=== PATIENT | female | born 1950 | race African-American/Black ===

== ENCOUNTER → 2016-08-19 | Outpatient (CLI) | payer OTHER, BC ==
[~2016-08-19] MED LIST: AMLODIPINE BESY10 MG PO; ASPIRIN325 PO; CALCIUM 600 +1 EAC1 PO; CENTRUM SILVER1 EAC4 PO; FOLIC ACID1 MG PO; GLUCOTROL5 MG PO; HYDROCHLOROTH12.5 M1 PO; LASIX 20 MG TAB20 MG PO; LISINOPRIL20 MG PO; LOVASTATIN 20 M20 MG PO; METFORMIN HCL500 MG PO; OMEGA-31000 M1 PO; PIOGLITAZONE15 MG PO; VITAMIN D3400 UNI2 PO
== END ==
LOC: RAD 01:27
DX: Z12.31 Encounter for screening mammogram for malignant neoplasm of breast (principal)

== ENCOUNTER → 2017-08-26 | Outpatient (CLI) | payer OTHER, BC | LOC: RAD 01:36 | DX: Z12.31 Encounter for screening mammogram for malignant neoplasm of breast (principal) ==

== ENCOUNTER → 2018-08-31 | Outpatient (CLI) | payer OTHER, BC | LOC: RAD 10:27 | DX: Z12.31 Encounter for screening mammogram for malignant neoplasm of breast (principal) ==

== ENCOUNTER → 2019-09-06 | Outpatient (CLI) | payer OTHER, BC | LOC: SJCVCIMAG 08:38 | PROVIDERS: ATTEND Internal Medicine | DX: I08.1 Rheumatic disorders of both mitral and tricuspid valves (principal); I11.9 Hypertensive heart disease without heart failure; R94.31 Abnormal electrocardiogram [ECG] [EKG]; R00.0 Tachycardia, unspecified; I25.10 Atherosclerotic heart disease of native coronary artery without angina pectoris; E78.5 Hyperlipidemia, unspecified; E11.9 Type 2 diabetes mellitus without complications; E66.9 Obesity, unspecified; Z79.899 Other long term (current) drug therapy ==

== ENCOUNTER → 2020-03-13 | Outpatient (CLI) | payer OTHER, BC | LOC: SJCVC 10:57 | PROVIDERS: ATTEND Internal Medicine | DX: R94.31 Abnormal electrocardiogram [ECG] [EKG] (principal); R00.0 Tachycardia, unspecified; I25.10 Atherosclerotic heart disease of native coronary artery without angina pectoris; I10 Essential (primary) hypertension; E78.5 Hyperlipidemia, unspecified; E11.9 Type 2 diabetes mellitus without complications; M19.90 Unspecified osteoarthritis, unspecified site; E66.9 Obesity, unspecified; Z88.2 Allergy status to sulfonamides; Z79.82 Long term (current) use of aspirin; Z79.84 Long term (current) use of oral hypoglycemic drugs; Z79.899 Other long term (current) drug therapy ==

== ENCOUNTER → 2020-10-03 | Outpatient (CLI) | payer OTHER, BC | LOC: SJCVC 10:36 | PROVIDERS: ATTEND Internal Medicine | DX: R94.31 Abnormal electrocardiogram [ECG] [EKG] (principal); I25.10 Atherosclerotic heart disease of native coronary artery without angina pectoris; I10 Essential (primary) hypertension; E78.5 Hyperlipidemia, unspecified; E11.9 Type 2 diabetes mellitus without complications; M19.90 Unspecified osteoarthritis, unspecified site; E66.9 Obesity, unspecified; Z95.5 Presence of coronary angioplasty implant and graft; Z90.710 Acquired absence of both cervix and uterus; Z88.2 Allergy status to sulfonamides; Z79.82 Long term (current) use of aspirin; Z79.84 Long term (current) use of oral hypoglycemic drugs; Z79.899 Other long term (current) drug therapy; Z82.49 Family history of ischemic heart disease and other diseases of the circulatory system ==

== ENCOUNTER → 2021-03-19 | Outpatient (CLI) | payer OTHER, BC | LOC: SJCVC 10:22 | PROVIDERS: ATTEND Internal Medicine | DX: R94.31 Abnormal electrocardiogram [ECG] [EKG] (principal); I25.10 Atherosclerotic heart disease of native coronary artery without angina pectoris; I10 Essential (primary) hypertension; E78.5 Hyperlipidemia, unspecified; E11.9 Type 2 diabetes mellitus without complications; E66.9 Obesity, unspecified; Z95.5 Presence of coronary angioplasty implant and graft; Z82.49 Family history of ischemic heart disease and other diseases of the circulatory system; Z88.1 Allergy status to other antibiotic agents; Z79.84 Long term (current) use of oral hypoglycemic drugs; Z79.82 Long term (current) use of aspirin; Z79.899 Other long term (current) drug therapy ==